=== PATIENT | male | born 1995 | race Caucasian/White ===

== ENCOUNTER 2018-01-25 21:34 | Emergency (ER) | payer OTHER ==
[~2018-01-25] VITALS: Ht 188 cm; Wt 74.8 kg
[2018-01-25] MEDS ORDERED: CLEOCIN HCL150 MG PO (21:55)
[2018-01-25] MEDS ORDERED: ACETAMINOPHEN-1 EAC1 PO (21:55)
[2018-01-25 22:13] VITALS: BP 139/86
== END 2018-01-25 22:13 | disposition home or self-care (01) ==
LOC: M.ERS 21:34
DX: K04.7 Periapical abscess without sinus (principal); F17.210 Nicotine dependence, cigarettes, uncomplicated; Z88.6 Allergy status to analgesic agent

== ENCOUNTER 2018-01-27 19:05 | Emergency (ER) | payer OTHER ==
[~2018-01-27] VITALS: Ht 188 cm; Wt 74.8 kg
[~2018-01-27 19:05] MED LIST: ACETAMINOPHEN-1 EAC1 PO; CLEOCIN HCL150 MG PO
[2018-01-27 19:10] VITALS: BP 123/93
[2018-01-27] MEDS ORDERED: NORCO 5-325 TA1 EAC1 PO (19:23)
== END 2018-01-27 19:30 | disposition home or self-care (01) ==
LOC: M.ERS 19:05
DX: K04.7 Periapical abscess without sinus (principal); F17.210 Nicotine dependence, cigarettes, uncomplicated; Z88.6 Allergy status to analgesic agent